=== PATIENT | female | born 1965 | race Caucasian/White ===

== ENCOUNTER → 2022-12-22 | Day surgery (SDC) | payer OTHER | END | disposition home or self-care (01) | LOC: JRADUS-SUR 08:29 | PROVIDERS: ATTEND Family Medicine | PROC: 07D63ZX Extraction of Left Axillary Lymphatic, Percutaneous Approach, Diagnostic (ICD-10-PCS; principal; 2022-12-22) | DX: R59.0 Localized enlarged lymph nodes (principal) | CPT/HCPCS: 19083; 87899; 88305-TC; 88342-TC; A4648 ==

== ENCOUNTER 2023-09-29 04:26 | Day surgery (SDC) | payer OTHER ==
[2023-09-23 12:44] VITALS: BMI 30.8
[2023-09-29 07:05] VITALS: RESP 18
[2023-09-29 08:22] VITALS: TEMP 97.6
[2023-09-29 08:50] VITALS: PULSE 62
[2023-09-29 08:59] VITALS: BP 113/61
== END 2023-09-29 09:04 | disposition home or self-care (01) ==
LOC: JASU-ENDO 04:26
PROVIDERS: ATTEND Internal Medicine Gastroenterology
PROC: 0DB78ZX Excision of Stomach, Pylorus, Via Natural or Artificial Opening Endoscopic, Diagnostic (ICD-10-PCS; 2023-09-29)
PROC: 0DB68ZX Excision of Stomach, Via Natural or Artificial Opening Endoscopic, Diagnostic (ICD-10-PCS; 2023-09-29)
PROC: 0DB98ZX Excision of Duodenum, Via Natural or Artificial Opening Endoscopic, Diagnostic (ICD-10-PCS; principal; 2023-09-29 08:00)
DX: K31.7 Polyp of stomach and duodenum (principal); K29.50 Unspecified chronic gastritis without bleeding
CPT/HCPCS: 88305-TC; 88342-TC

== ENCOUNTER 2024-01-31 04:27 | Day surgery (SDC) | payer OTHER ==
[2024-01-30 15:51] VITALS: BMI 31.2
[2024-01-31 09:21] VITALS: TEMP 97.8
[2024-01-31 11:46] VITALS: BP 109/57; PULSE 61; RESP 16
== END 2024-01-31 10:00 | disposition home or self-care (01) ==
LOC: JASU-ENDO 04:27
PROVIDERS: ATTEND Internal Medicine Gastroenterology
PROC: 0DBH8ZX Excision of Cecum, Via Natural or Artificial Opening Endoscopic, Diagnostic (ICD-10-PCS; principal; 2024-01-31 08:45)
DX: Z12.11 Encounter for screening for malignant neoplasm of colon (principal); K92.2 Gastrointestinal hemorrhage, unspecified; K64.8 Other hemorrhoids; K62.89 Other specified diseases of anus and rectum
CPT/HCPCS: 88305-TC

== ENCOUNTER 2024-08-13 05:19 | Day surgery (SDC) | payer OTHER ==
[2024-08-08 16:58] VITALS: BMI 28.3
[2024-08-13] MEDS ORDERED: ONDANSETRON 4 MG/2 ML VIAL IVPUSH PRN (13:04)
[2024-08-13] MEDS ORDERED: PROPOFOL 20 ML ONE (13:15)
[2024-08-13] MEDS ORDERED: LACTATED RINGERS SOLUTION 1,000 ML IV SCH (13:15)
[2024-08-13] MEDS: ceFAZolin SODIUM 1 GM VIAL IVPB ONE (13:42)
[2024-08-13 15:02] VITALS: RESP 18
[2024-08-13 17:55] VITALS: BP 140/63; PULSE 63; TEMP 97.8
== END 2024-08-13 17:45 | disposition home or self-care (01) ==
LOC: JASU-SURG 05:19
PROVIDERS: ATTEND Obstetrics & Gynecology
PROC: 0UDB8ZX Extraction of Endometrium, Via Natural or Artificial Opening Endoscopic, Diagnostic (ICD-10-PCS; principal; 2024-08-13 12:00)
DX: N85.00 Endometrial hyperplasia, unspecified (principal)
CPT/HCPCS: 86850; 86900; 86901; 88305-TC; 94760